=== PATIENT | male | born 1980 | race Caucasian/White ===

== ENCOUNTER 2025-01-09 16:47 | Emergency (ER) | payer SELFPAY ==
[~2025-01-09] VITALS: Ht 165.1 cm; Wt 77.0 kg
--- NOTE | 2025-01-09 17:29 | Physician Documentation ---
History of Present Illness ~ Chief Complaint: Sore Throat Stated Complaint: SORE THROAT Time Seen by MD: 18:09 HPI Is a 44-year-old male that presents to the emergency department for evaluation of sore throat x3 days. Patient reports headache nausea and vomiting and fevers. Patient reports that he was seen via telemedicine until to report to the emergency department for antibiotics. Medication Reconciliation Allergies: Coded Allergies: No Known Allergies (Unverified , 01/09/25) Scheduled Amox Tr/Potassium Clavulanate 875/125 MG (Augmentin 875/125 MG), 1 TAB PO Q12H Review of Systems ROS As stated above in the HPI, otherwise all systems are reviewed and negative. Physical Exam Vital Signs: Temperature: 99.5, Source: Temporal, Heart Rate: 115, Respiratory Rate: 18, BP: 111/84, Pulse Oximetry: 97, Weight: 77.000 Oxygen Flow Rate: 0 Physical Exam VITALS: Reviewed and as above. GENERAL: Alert, no apparent distress. HEENT: Normocephalic, atraumatic, PERRL, EOMI, dry mucosa, erythema to the posterior oropharynx, bilateral lymphadenopathy RESPIRATORY: Lungs clear, normal breath sounds, no respiratory distress. CHEST: No accessory muscle use, no retractions CV: Sinus tachycardia secondary to fever, rhythm, no edema, no murmur, No: JVD GI: Soft, non-tender, bowels sounds present, no rebound, guarding, or rigidity BACK: No CVA tenderness, or swelling MUSCULOSKELETAL No deformities, no edema SKIN: Warm and dry, no rash NEURO: Oriented x4, No motor or sensory deficit PSYCH: Normal mood and affect, no agitation Progress Results/Orders Results/Orders Completed Orders - NAYANA ROSE Strep A Rapid (01/09/25 17:26) Amox Tr/Potassium Clavulanate (Augmentin (01/09/25 18:20) Laboratory Tests Test 01/09/25 17:30 SARS-CoV-2 Antigen (Rapid) Negative Group A Streptococcus Rapid Positive H Medical Decision Making Findings No history of immunocompromise. Nontoxic appearance. Patient euvolemic with no trismus. No airway compromise. Patient demonstrates exudates, erythema to the posterior oropharynx, enlarged lymph nodes. Able to tolerate PO. Given History and Exam I have low suspicion for this presentation being caused by POLE MAKER, RPA, Ludwigs angina, Epiglottitis or Bacterial Tracheitis, EBV, or acute HIV. Strep positive for strep at this time. Symptoms correlate with laboratory diagnostics. Patient is being prescribed Augmentin. Take Tylenol or ibuprofen as needed. Primary care provider. Strict return precautions provided. Departure Disposition: HOME / SELF CARE / HOMELESS Impression: Primary Impression: Acute pharyngitis Additional Impressions: Sore throat Strep pharyngitis Condition: Stable Discharge Instructions: Strep Throat, Adult, Sore Throat Additional Instructions: Diagnosed with strep throat. Then prescribed an antibiotic please take the antibiotic until it is completely finish. Tylenol ibuprofen as needed for discomfort. He has follow up with your primary care provider. Please return to the emergency department if you have any worsening or recurrent symptoms or any the additional concerning symptoms we discussed here today especially additional swelling in her airway difficulty swallowing increased fevers pain in the back of your neck or any other additional concerning symptoms. Referrals: NO PRIMARY CARE PROVIDER (PCP) Prescriptions Amox Tr/Potassium Clavulanate 875/125 MG (Augmentin 875/125 MG) 875 Mg-125 Mg Tablet 1 TAB PO Q12H for 10 Days, #20 TAB Prov: NAYANA ROSE 01/09/25 Education Educated: Patient Educated regarding: diagnosis, treatment, need for follow up Signature Scribe Signature: A Attestation: Scribed for Nayana Rose by JEREMI Quinonez . 01/14/25 15:29 NAYANA ROSE Jan 09, 2025 17:29
[2025-01-09 17:52] LABS: STREP A SCREEN POSITIVE (Neg)
[2025-01-09 18:13] VITALS: BP 117/80; PULSE 100; RESP 16; TEMP 99; O2SAT 97
[2025-01-09] MEDS ORDERED: AMOX-580 PO (18:19)
[2025-01-09] MEDS ORDERED: amox tr/potassium clavulanate 875/125mg TAB PO ONE (18:20)
== END 2025-01-09 18:28 | disposition home or self-care (01) ==
LOC: ER 16:49
DX: J02.0 Streptococcal pharyngitis (principal); Z20.822 Contact with and (suspected) exposure to COVID-19
CPT/HCPCS: 36415; 87811; 87880; 99283